=== PATIENT | female | born 1970 | race Caucasian/White ===

== ENCOUNTER 2022-06-24 11:32 | Inpatient (IN) | payer OTHER ==
[~2022-06-24] VITALS: Ht 167.6 cm; Wt 88.9 kg
[~2022-06-24 11:32] MED LIST: ACET1TAB PO
[2022-06-24 11:39] VITALS: BP 106/54
[2022-06-24] MEDS ORDERED: VANCOMYCIN 1,000 MG in DEXTROSE 5% 250 ML IV ONE (12:10)
[2022-06-24] MEDS ORDERED: PIPERACILLIN/TAZOBACTAM 3.375 GM in DEXTROSE 5% 50 ML IV ONE (12:10)
--- NOTE | 2022-06-24 12:19 | NUR ---
PT AMBULATED TO BED 12.
[2022-06-24] MEDS ORDERED: PIPERACILLIN/TAZOBACTAM 3.375 GM VIAL IV ONE (12:35)
[2022-06-24 12:45] LABS: BASOPHILS % (AUTO) 0.2 % (0.0-2.0); EOSINOPHILS % (AUTO) 0.2 % (0.0-4.0); HEMATOCRIT 38.5 % (36-48); HEMOGLOBIN 13.2 g/dL (12.0-16.0); LYMPHOCYTES # (AUTO) 1.5 K/uL (2.5-16.5); LYMPHOCYTES % (AUTO) 17.5 % (20.5-51.1); MEAN CORPUSCULAR HEMOGLOBIN 33 pg (27-31); MEAN CORPUSCULAR HGB CONC 34 g/dL (33-37); MEAN CORPUSCULAR VOLUME 95.2 fL (80-94); MONOCYTES # (AUTO) 0.7 K/uL (0.8-1.0); MONOCYTES % (AUTO) 8.1 % (1.7-9.3); NEUTROPHILS # (AUTO) 6.1 K/uL (1.8-7.7); PLATELET COUNT (AUTO) 151 K/uL (140-450); RED BLOOD CELL COUNT(AUTO) 4.04 MIL/uL (4.20-5.40); RED CELL DISTRIBUTION WIDTH 13.8 % (11.6-13.7); WHITE BLOOD COUNT (AUTO) 8.3 K/uL (4.8-10.8)
[2022-06-24 13:06] LABS: ALBUMIN 3.9 g/dL (3.4-5.0); ASPARTATE AMINOTRANSFERASE 28 U/L (15-37); CARBON DIOXIDE 29.1 mmol/L (21-32); CHLORIDE 98 mmol/L (98-107); CREATININE 0.8 mg/dL (0.6-1.3); GFR ARICAN-AMERICAN 96 mL/min (>90); GLUCOSE 127 mg/dL (74-106); POTASSIUM 3.1 mmol/L (3.5-5.1); SODIUM SERUM 129 mmol/L (136-145); TOTAL BILIRUBIN 0.6 mg/dL (0.0-1.0); UREA NITROGEN, BLOOD 9 mg/dL (7-18)
[2022-06-24] MEDS ORDERED: BACITRACIN OINT 500 UNITS/GM PKT TP ONE (13:15)
[2022-06-24] MEDS ORDERED: NACL 0.9% 2,000 ML IV ONE (13:25)
[2022-06-24] MEDS ORDERED: HYDROcodone/APAP 5/325 MG 1 TAB TAB PO ONE (13:25)
[2022-06-24] MEDS ORDERED: VANCOMYCIN 1,000 MG VIAL ONE (13:34)
[2022-06-24] MEDS ORDERED: POTASSIUM CHLORIDE 20% 40 MEQ/15 ML UDC PO ONE (13:45)
--- NOTE | 2022-06-24 14:28 | NUR ---
1st, 2nd, 3rd, 5th digit dressed and bandaged. + cms
--- NOTE | 2022-06-24 14:34 | NUR ---
PT AMBULATED TO RESTROOM WITH STEADY GAIT.
[2022-06-24] MEDS ORDERED: ACETAMINOPHEN 325 MG TAB PO PRN (16:25)
[2022-06-24] MEDS ORDERED: POTASSIUM CHLORIDE 10 MEQ TABER PO PRN (16:25)
[2022-06-24] MEDS ORDERED: KCL 20 MEQ IN 100 mL PREMIX 200 ML IV PRN (16:25)
[2022-06-24] MEDS ORDERED: MAGNESIUM OXIDE 400 MG TAB PO PRN (16:25)
[2022-06-24] MEDS ORDERED: VANCOMYCIN PER PHARMACY MC PRN (16:25)
[2022-06-24] MEDS ORDERED: MORPHINE SULFATE 4 MG/ML SYR IVP PRN (16:25)
[2022-06-24] MEDS ORDERED: ONDANSETRON 4 MG/2 ML VIAL IVP PRN (16:25)
[2022-06-24] MEDS ORDERED: MAG SULF 2000 MG/WATER PREMIX 50 ML IV PRN (16:25)
[2022-06-24] MEDS ORDERED: cefTRIAXone 1,000 MG VIAL ONE (18:12)
[2022-06-24] MEDS ORDERED: ROSU40TA PO (18:31)
[2022-06-24] MEDS ORDERED: OMEP20EC11 PO (18:31)
[2022-06-24] MEDS ORDERED: ASPI-1822 PO (18:31)
[2022-06-24] MEDS ORDERED: LOSA100T2 PO (18:31)
[2022-06-24] MEDS ORDERED: GABA300C PO (18:31)
[2022-06-24] MEDS ORDERED: FENO145T PO (18:31)
--- NOTE | 2022-06-24 19:20 | NUR ---
Pt sitting up in bed eating dinner, no c/o discomfort at this time.
--- NOTE | 2022-06-24 20:58 | NUR ---
Report given to Slime BECKWITH for transfer of care
[2022-06-25] MEDS ORDERED: VANCOMYCIN 500 MG VIAL ONE (02:02)
[2022-06-25] MEDS ORDERED: VANCOMYCIN 1,000 MG VIAL ONE (02:02)
[2022-06-25] MEDS: VANCOMYCIN HCL 1.25 GM in DEXTROSE 5% 250 ML IV SCH ×2 (02:20→14:13)
--- NOTE | 2022-06-25 07:30 | NUR ---
RECIEVED THE PATIENT FROM [employer] NURSE.VITALS ARE STABLE.WILL CONTINUE TO MONITOR
[2022-06-25 07:32] LABS: BASOPHILS % (AUTO) 0.3 % (0.0-2.0); EOSINOPHILS # (AUTO) 0.1 K/uL (0-0.4); EOSINOPHILS % (AUTO) 1.1 % (0.0-4.0); HEMATOCRIT 38.8 % (36-48); LYMPHOCYTES # (AUTO) 1.3 K/uL (2.5-16.5); LYMPHOCYTES % (AUTO) 29.5 % (20.5-51.1); MEAN CORPUSCULAR HEMOGLOBIN 33 pg (27-31); MEAN CORPUSCULAR HGB CONC 33 g/dL (33-37); MEAN CORPUSCULAR VOLUME 97.4 fL (80-94); MONOCYTES # (AUTO) 0.3 K/uL (0.8-1.0); MONOCYTES % (AUTO) 7.6 % (1.7-9.3); NEUTROPHILS # (AUTO) 2.8 K/uL (1.8-7.7); NEUTROPHILS % (AUTO) 61.5 % (42.2-75.2); PLATELET COUNT (AUTO) 134 K/uL (140-450); RED BLOOD CELL COUNT(AUTO) 3.99 MIL/uL (4.20-5.40); RED CELL DISTRIBUTION WIDTH 13.6 % (11.6-13.7); WHITE BLOOD COUNT (AUTO) 4.6 K/uL (4.8-10.8)
[2022-06-25 07:58] LABS: ALBUMIN 3.9 g/dL (3.4-5.0); ANION GAP 10.9 (8-16); CARBON DIOXIDE 30.7 mmol/L (21-32); CREATININE 0.6 mg/dL (0.6-1.3); MAGNESIUM 1.4 mg/dL (1.8-2.4); POTASSIUM 3.6 mmol/L (3.5-5.1)
[2022-06-25 08:00] VITALS: BP 161/65
[2022-06-25] MEDS: DOCUSATE SODIUM 100 MG GELCAP PO SCH (08:52)
--- NOTE | 2022-06-25 09:22 | NUR ---
PATIENT HAS BEEN SCREENED AND CATEGORIZED MODERATE NUTRITION RISK. PATIENT WILL BE SEEN WITHIN 3-5 DAYS OF ADMISSION. REVIEWED BY BRUNO MURRY RD
[2022-06-25] MEDS: HYDROcodone/APAP 5/325 MG 1 TAB TAB PO PRN (11:16)
[2022-06-25 12:00] VITALS: BP 150/61
--- NOTE | 2022-06-25 12:13 | NUR ---
REPORTED THE MD REGARDING THE RECONCILE MEDS.STARTED THE ORDERS PER DOCTORES ORDER.
[2022-06-25] MEDS: GABAPENTIN 300 MG CAP PO SCH ×2 (13:11→17:07)
[2022-06-25 16:00] VITALS: BP 161/88
--- NOTE | 2022-06-25 16:45 | NUR ---
CHECKED BP IT IS 170/65.MEDICATED WITH PRN BP MEDS.NO SIGNS OF DISTRSS NOTED.
[2022-06-25] MEDS: hydrALAZINE 25 MG TAB PO PRN (16:48)
--- NOTE | 2022-06-25 19:30 | NUR ---
RECEIVED REPORT FROM DAY SHIFT NURSE JOSEPH FOR CONTINUITY OF CARE. PATIENT IS A&O X4. PATIENT IS ON ROOM AIR; BREATHING IS NORMAL WITH SYMMETRICAL RISE AND FALL OF CHEST. IV IS A 22G RAC, RUNNING NS 3ML TKO. PATIENT IS SLEEPING, LYING SUPINE. WILL CONTINUE TO OBSERVE PATIENT.
[2022-06-25 20:00] VITALS: BP 148/83
[2022-06-25] MEDS ORDERED: ROSUVASTATIN CALCIUM 40 MG PO SCH (21:00)
[2022-06-26] MEDS: VANCOMYCIN HCL 1.25 GM in DEXTROSE 5% 250 ML IV SCH ×2 (02:19→14:16)
[2022-06-26 04:00] VITALS: BP 168/111
[2022-06-26] MEDS: HYDROcodone/APAP 5/325 MG 1 TAB TAB PO PRN (05:05)
[2022-06-26] MEDS: hydrALAZINE 25 MG TAB PO PRN (06:17)
--- NOTE | 2022-06-26 06:30 | NUR ---
PUT IN ORDER FOR WOUND CARE EVALUATION FOR PATIENT. REMOVED DRESSING ON PATIENT'S WOUND AND TOOK PICTURES. APPLIED NEW DRESSING TO WOUND. PATIENT WAS MEDICATED WITH NORCO BEFORE DRESSING CHANGE WAS DONE. WILL CONTINUE TO OBSERVE PATIENT.
--- NOTE | 2022-06-26 07:30 | NUR ---
ENDORSED TO DAY SHIFT NURSE BROOKS FOR CONTINUITY OF CARE. PATIENT IS STABLE.
--- NOTE | 2022-06-26 07:32 | NUR ---
PT RESTING IN BED. NO GUARDING OR GRIMACING. NO ACUTE DISTREE NOTED AT THIS TIME. [id number].
[2022-06-26 07:50] LABS: ALBUMIN 4.1 g/dL (3.4-5.0); ANION GAP 17.2 (8-16); CARBON DIOXIDE 27.4 mmol/L (21-32); CREATININE 0.8 mg/dL (0.6-1.3); MAGNESIUM 1.7 mg/dL (1.8-2.4); POTASSIUM 3.6 mmol/L (3.5-5.1); TOTAL BILIRUBIN 0.9 mg/dL (0.0-1.0)
[2022-06-26 07:53] LABS: BASOPHILS % (AUTO) 0.4 % (0.0-2.0); EOSINOPHILS # (AUTO) 0.1 K/uL (0-0.4); EOSINOPHILS % (AUTO) 2.3 % (0.0-4.0); HEMATOCRIT 46.6 % (36-48); HEMOGLOBIN 15.6 g/dL (12.0-16.0); LYMPHOCYTES % (AUTO) 24.4 % (20.5-51.1); MEAN CORPUSCULAR HEMOGLOBIN 33 pg (27-31); MEAN CORPUSCULAR HGB CONC 33 g/dL (33-37); MEAN CORPUSCULAR VOLUME 97.6 fL (80-94); MONOCYTES # (AUTO) 0.3 K/uL (0.8-1.0); MONOCYTES % (AUTO) 6.8 % (1.7-9.3); NEUTROPHILS # (AUTO) 2.7 K/uL (1.8-7.7); NEUTROPHILS % (AUTO) 66.1 % (42.2-75.2); PLATELET COUNT (AUTO) 119 K/uL (140-450); RED BLOOD CELL COUNT(AUTO) 4.78 MIL/uL (4.20-5.40); RED CELL DISTRIBUTION WIDTH 13.9 % (11.6-13.7); WHITE BLOOD COUNT (AUTO) 4.1 K/uL (4.8-10.8)
[2022-06-26] MEDS ORDERED: ASPIRIN 81 MG TAB.CHEW PO SCH (09:00)
[2022-06-26] MEDS ORDERED: LOSARTAN 25 MG TAB PO SCH (09:00)
[2022-06-26] MEDS ORDERED: PANTOPRAZOLE 40 MG TABEC PO SCH (09:00)
[2022-06-26] MEDS ORDERED: NON-FORMULARY ITEM (Omeprazole* (Prilosec*) 20 MG) PO SCH (09:00)
[2022-06-26] MEDS ORDERED: ATORVASTATIN 80 MG TAB PO SCH (09:00)
[2022-06-26] MEDS: DOCUSATE SODIUM 100 MG GELCAP PO SCH (09:39)
[2022-06-26] MEDS: GABAPENTIN 300 MG CAP PO SCH ×3 (09:41→17:41)
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
[2022-06-26 11:23] VITALS: BP 159/91
[2022-06-26] MEDS ORDERED: GAUZE TP SCH (13:00)
--- NOTE | 2022-06-26 14:18 | NUR ---
WOUND DRESSED TODAY BY WOUND NURSE. PER WOUND NURE, NO NEED TO DRESS WOUND AGAIN.[id number].
[2022-06-26] MEDS ORDERED: CLIN300C2 PO (15:37)
[2022-06-26 16:00] VITALS: BP 128/72
== END 2022-06-26 19:30 | disposition home or self-care (01) | DRG 720 ==
LOC: MED 11:32 → MTU 16:30 → MMU 16:30 → OBSVTOIN 16:30 → MTU 20:47
PROVIDERS: ADMIT Hospitalist; ATTEND Hospitalist
DX: A41.9 Sepsis, unspecified organism (principal); U07.1 COVID-19; E87.1 Hypo-osmolality and hyponatremia; L03.113 Cellulitis of right upper limb; E87.6 Hypokalemia; E78.5 Hyperlipidemia, unspecified; I10 Essential (primary) hypertension; M79.7 Fibromyalgia
CPT/HCPCS: 36415; 73130; 80053; 80202; 83605; 83735; 84484; 85025; 87040; 87081; 90471; 90715; 96365; 96366; 96367; 99291; J0696; J2270; J2543; J3370; J3475; J7060